=== PATIENT | female | born 2000 | race African-American/Black ===

== ENCOUNTER 2025-08-21 19:30 | Emergency (ER) | payer MEDICAID ==
[~2025-08-21] VITALS: Ht 160 cm; Wt 60.0 kg
[2025-08-21 20:14] VITALS: O2SAT 100
[2025-08-21 20:16] VITALS: BP 114/70; PULSE 70; RESP 18; TEMP 36.9; O2SAT 98
[2025-08-21] MEDS ORDERED: SODI1PAC NS (20:50)
[2025-08-21] MEDS ORDERED: FLUT16SP15 BOTHNSTRLS (20:50)
== END 2025-08-21 21:35 | disposition home or self-care (01) ==
LOC: ER 19:30
DX: J32.9 Chronic sinusitis, unspecified (principal)
CPT/HCPCS: 99283